=== PATIENT | female | born 1950 | race Caucasian/White ===

== ENCOUNTER 2024-03-11 09:07 | Emergency (ER) | payer OTHER ==
[~2024-03-11] VITALS: Ht 165.1 cm; Wt 72.6 kg
[2024-03-11 09:27] LABS: BASOPHILS ABSOLUTE AUTO 0.04 K/mm3 (0.00-0.23); BASOPHILS PERCENT AUTO 1 % (0-2); EOSINOPHILS ABSOLUTE AUTO 0.23 K/mm3 (0.00-0.68); EOSINOPHILS PERCENT AUTO 3 % (0-6); Hematocrit 42.8 % (33.0-51.0); Hemoglobin 14.3 g/dL (11.5-16.0); IMMATURE GRAN ABSOLUTE AUTO 0.08 K/mm3 (0.00-0.10); IMMATURE GRAN PERCENT AUTO 1 % (0-1); LYMPHOCYTES ABSOLUTE AUTO 3.09 K/mm3 (0.84-5.20); LYMPHOCYTES PERCENT AUTO 41 % (21-46); MONOCYTES ABSOLUTE AUTO 0.58 K/mm3 (0.16-1.47); MONOCYTES PERCENT AUTO 8 % (4-13); Mean Corpuscular HGB 28.9 pg (26.0-34.0); Mean Corpuscular HGB Conc 33.4 g/dL (31.5-36.5); Mean Corpuscular Volume 87 fL (80-100); Mean Platelet Volume 9.9 fL (9.1-12.4); NEUTROPHILS ABSOLUTE AUTO 3.46 K/mm3 (1.96-9.15); NEUTROPHILS PERCENT AUTO 46 % (41-73); Platelet Count 282 K/mm3 (150-400); RDW Coefficient Variation 13.2 % (11.7-14.2); RDW Standard Deviation 41.7 fL (35.1-46.3); Red Blood Cell Count 4.94 M/mm3 (3.80-5.20); White Blood Cell Count 7.48 K/mm3 (4.00-11.30)
[2024-03-11] MEDS ORDERED: NS 1,000 ML IV SCH (09:35)
[2024-03-11 09:49] LABS: Albumin, Blood 3.9 g/dL (3.4-5.0); Albumin/Globulin Ratio 1.1 (0.8-1.8); Bilirubin, Total 0.5 mg/dL (0.1-1.0); Bun/Creatinine Ratio 26.2 (12.0-20.0); Calcium, Blood 8.9 mg/dL (8.5-10.1); Creatinine, Blood 0.76 mg/dL (0.40-1.00); Globulin, Blood 3.7 g/dL (2.2-4.0); Potassium, Blood 3.5 mmol/L (3.5-5.5); Total Protein, Blood 7.6 g/dL (6.4-8.2)
[2024-03-11 10:57] VITALS: BP 138/71
== END 2024-03-11 11:13 | disposition home or self-care (01) ==
LOC: ER 09:07
PROVIDERS: Emergency Medicine
DX: R55 Syncope and collapse (principal); E86.0 Dehydration; T67.9XXA Effect of heat and light, unspecified, initial encounter
CPT/HCPCS: 80053; 85025; 93005; 93010; 96360; 99284-25; J7030

== ENCOUNTER 2024-04-21 19:51 | Observation (INO) | payer OTHER ==
[~2024-04-21] VITALS: Ht 170.2 cm; Wt 79.4 kg
[2024-04-21] MEDS ORDERED: Ondansetron HCl 2 MG / ML 2ML Vial IV ONE (20:20)
[2024-04-21 20:25] LABS: BASOPHILS ABSOLUTE AUTO 0.06 K/mm3 (0.00-0.23); BASOPHILS PERCENT AUTO 1 % (0-2); EOSINOPHILS ABSOLUTE AUTO 0.19 K/mm3 (0.00-0.68); EOSINOPHILS PERCENT AUTO 2 % (0-6); Hematocrit 42.6 % (33.0-51.0); IMMATURE GRAN ABSOLUTE AUTO 0.25 K/mm3 (0.00-0.10); IMMATURE GRAN PERCENT AUTO 2 % (0-1); LYMPHOCYTES ABSOLUTE AUTO 4.26 K/mm3 (0.84-5.20); LYMPHOCYTES PERCENT AUTO 37 % (21-46); MONOCYTES ABSOLUTE AUTO 0.81 K/mm3 (0.16-1.47); MONOCYTES PERCENT AUTO 7 % (4-13); Mean Corpuscular HGB 29.2 pg (26.0-34.0); Mean Corpuscular HGB Conc 32.9 g/dL (31.5-36.5); Mean Corpuscular Volume 89 fL (80-100); Mean Platelet Volume 9.9 fL (9.1-12.4); NEUTROPHILS ABSOLUTE AUTO 5.84 K/mm3 (1.96-9.15); NEUTROPHILS PERCENT AUTO 51 % (41-73); Platelet Count 264 K/mm3 (150-400); RDW Coefficient Variation 13.2 % (11.7-14.2); RDW Standard Deviation 43.2 fL (35.1-46.3); Red Blood Cell Count 4.79 M/mm3 (3.80-5.20); White Blood Cell Count 11.41 K/mm3 (4.00-11.30)
[2024-04-21 20:41] LABS: Albumin, Blood 3.6 g/dL (3.4-5.0); Bilirubin, Total 0.3 mg/dL (0.1-1.0); Bun/Creatinine Ratio 20.3 (12.0-20.0); Calcium, Blood 8.9 mg/dL (8.5-10.1); Creatinine, Blood 0.89 mg/dL (0.40-1.00); Globulin, Blood 3.7 g/dL (2.2-4.0); Potassium, Blood 3.4 mmol/L (3.5-5.5); Total Protein, Blood 7.3 g/dL (6.4-8.2)
[2024-04-21 21:24] LABS: Prolactin 131.5 ng/mL (2.74-19.64)
[2024-04-21] MEDS ORDERED: Promethazine HCl 25 MG Tab PO ONE (21:35)
[2024-04-21] MEDS ORDERED: NS 1,000 ML IV SCH (21:35)
[2024-04-21] MEDS ORDERED: Ketorolac Tromethamine 15mg Vial IV ONE (23:40)
[2024-04-22] MEDS ORDERED: Ondansetron HCl 2 MG / ML 2ML Vial IV PRN (00:25)
[2024-04-22] MEDS ORDERED: levETIRAcetam 500 MG in NS 100 ML IV STA (00:30)
[2024-04-22] MEDS ORDERED: Potassium Chloride 20 MEQ TabCR PO ONE (01:05)
[2024-04-22 01:16] VITALS: BP 139/72
--- NOTE | 2024-04-22 02:16 | NUR ---
ADMISSION: PATIENT WAS RECIEVED FROM ER VIA STRETCHER. PATIENT IS A&OX4, VSS, REPORTS HEADACHE IS IMPROVED AFTER TORADOL WAS GIVEN IN THE ER. PATIENT IS ORIENTED TO THE ROOM AND THE CALL MEYERS. NO SMOKING POLICY WAS REVIEWED. TELI. IS PLACED AND SEIZURE PRECAUTIONS ARE IN PLACE.
[2024-04-22 06:54] LABS: Calcium, Blood 9.2 mg/dL (8.5-10.1); Creatinine, Blood 0.81 mg/dL (0.40-1.00); Potassium, Blood 4.5 mmol/L (3.5-5.5)
[2024-04-22 07:24] VITALS: BP 105/65
[2024-04-22] MEDS ORDERED: Enoxaparin 40 MG/0.4 ML SYR SC SCH (09:00)
[2024-04-22] MEDS ORDERED: LevETIRAcetam 500 MG Tab PO SCH (10:00)
[2024-04-22] MEDS ORDERED: levETIRAcetam 500 MG in NS 100 ML IV SCH (10:00)
[2024-04-22] MEDS ORDERED: LEVE500 PO (12:58)
--- NOTE | 2024-04-22 15:19 | NUR ---
DISCHARGE NOTE- PT WAS GIVEN VERBAL AND WRITTEN DISCHARGE INSTRUCTIONS AND ACKNOWLEDGED UNDERSTANDING OF THEM. IV'S AND TELE DC'D PRIOR TO DISCHARGE. PT ESCORTED OUT VIA WC BY THE MANAGER OF COMMUNITY RELATIONS, NO S&S OF DISTRESS NOTED AT THE TIME OF DISCHARGE.
== END 2024-04-22 14:57 | disposition home or self-care (01) ==
LOC: ER 19:51 → MEDS 19:52
PROVIDERS: Student in an Organized Health Care Education/Training Program; ADMIT Internal Medicine
DX: R56.9 Unspecified convulsions (principal); I10 Essential (primary) hypertension; E87.6 Hypokalemia; R55 Syncope and collapse
CPT/HCPCS: 36415; 70450; 70551; 72131; 80048; 80053; 83605; 84146; 84484; 85025; 93005; 93010; 95819; 96361; 96365; 96374; 96375; 99285-25; A9270; G0378; J1885; J1953; J2405; J7030

== ENCOUNTER 2024-09-18 06:28 | Day surgery (SDC) | payer OTHER ==
[~2024-09-18] VITALS: Ht 165.1 cm; Wt 72.1 kg
[~2024-09-18 06:28] MED LIST: LEVE500 PO
[2024-09-18] MEDS ORDERED: Lactated Ringer's 1,000 ML IV ONE ×2 (07:01→07:42)
[2024-09-18] MEDS ORDERED: propofoL 40 ML IV ONE (07:42)
[2024-09-18 08:50] VITALS: BP 100/67
== END 2024-09-18 08:55 | disposition home or self-care (01) ==
LOC: ORSCSDS 06:28
PROVIDERS: Surgery
PROC: 0DJD8ZZ Inspection of Lower Intestinal Tract, Via Natural or Artificial Opening Endoscopic (ICD-10-PCS; principal; 2024-09-18 08:00)
DX: Z12.11 Encounter for screening for malignant neoplasm of colon (principal); K57.30 Diverticulosis of large intestine without perforation or abscess without bleeding; G40.909 Epilepsy, unspecified, not intractable, without status epilepticus; I10 Essential (primary) hypertension; E87.6 Hypokalemia; Z87.891 Personal history of nicotine dependence; Z79.899 Other long term (current) drug therapy
CPT/HCPCS: J2704; J7120